=== PATIENT | male | born 1990 | race Caucasian/White ===

== ENCOUNTER 2019-01-23 01:23 | Emergency (ER) | payer OTHER ==
[2019-01-23] MEDS ORDERED: LIDOCAINE 1% W/EPI 1:100,000 MDV 20 ML VIAL ONE (01:54)
[2019-01-23] MEDS ORDERED: SMZ./TMP. 800/160 MG TABLET ONE (02:19)
[2019-01-23] MEDS ORDERED: DOXYCYCLINE 100 MG CAP PO ONE (02:19)
[2019-01-23] MEDS ORDERED: NA CHLORIDE 0.9% 1,000 ML ONE (02:19)
[2019-01-23 03:01] LABS: Absolute Lymphocytes (CBC) 1.9 K/uL (0.7-4.9); Basophils % 0.2 % (0-1.3); Hematocrit 38.8 % (39.6-49.0); Lymphocytes % 17.8 % (15.3-44.8); MPV 9.7 fL (7.6-11.3); RBC Red Blood Cell Count 4.08 M/uL (4.33-5.43)
--- NOTE | 2019-01-23 03:08 | ER ---
Nurse's Notes [facility] Name: Amauri Gaitan Age: 28 yrs Sex: Male : 1990 Arrival Date: 01/23/2019 Time: 01:28 Bed 2 Private MD: Jere Joel Diagnosis: Cutaneous abscess of back [any part, except buttock];Epileptic seizures related to external causes;Sebaceous cyst Presentation: 01/23 01:35 Presenting complaint: Patient states: last known time he recalls is 0040. pt stated he ak1 does not have a hx seizure. pt with hematoma to back of head. Transition of care: patient was not received from another setting of care. Onset of symptoms was January 23, 2019. Risk Assessment: Do you want to hurt yourself or someone else? Patient reports no desire to harm self or others. Initial Sepsis Screen: Does the patient meet any 2 criteria? No. Patient's initial sepsis screen is negative. Does the patient have a suspected source of infection? No. Patient's initial sepsis screen is negative. Care prior to arrival: None. 01:35 Method Of Arrival: Wheelchair ak1 01:35 Acuity: MYRANDA 3 ak1 Triage Assessment: 01:36 General: Appears in no apparent distress. Behavior is calm, cooperative. Neuro: Level ak1 of Consciousness is awake, alert, obeys commands, Oriented to person, place, time, situation, Appropriate for age Technology Integration Specialist are equal bilaterally Moves all extremities. Full function Gait is steady, Speech is normal. Historical: - Allergies: 01:36 No Known Allergies; ak1 - Home Meds: 01:36 None [Active]; ak1 - PMHx: 01:36 None; ak1 - PSHx: 01:36 None; ak1 - Immunization history:: Adult Immunizations unknown. - Social history:: Smoking status: Patient/guardian denies using tobacco. - Ebola Screening: : No symptoms or risks identified at this time. - Family history:: not pertinent. Screenin:46 Abuse screen: Denies threats or abuse. Nutritional screening: No deficits noted. ea Tuberculosis screening: No symptoms or risk factors identified. Fall Risk None identified. Assessment: 02:00 General: Appears comfortable, Behavior is calm, cooperative. Pain: Complains of pain in ea back. Neuro: Level of Consciousness is awake, alert, obeys commands, Oriented to person, place, time, situation. Cardiovascular: Patient's skin is warm and dry. Respiratory: Airway is patent Respiratory effort is even, unlabored, Respiratory pattern is regular, symmetrical. GI: Abdomen is non-distended. Derm: Skin is pink, warm \T\ dry. 03:44 Reassessment: Patient and/or family updated on plan of care and expected duration. Pain ea level reassessed. Patient is alert, oriented x 3, equal unlabored respirations, skin warm/dry/pink. 04:57 Reassessment: Patient and/or family updated on plan of care and expected duration. Pain ea level reassessed. Patient is alert, oriented x 3, equal unlabored respirations, skin warm/dry/pink. Discharge instruction given to patient, verbalized the understanding of instruction. Pt left ED ambulatory with family, tolerating well. Vital Signs: 01:34 BP 109 / 73; Pulse 59; Resp 16; Temp 98.6; Pulse Ox 96% on R/A; Weight 57.61 kg (R); ak1 Height 5 ft. 6 in. (167.64 cm) (R); Pain 5/10; 03:48 BP 104 / 66; Pulse 67; Resp 18; Pulse Ox 98% ; ea 05:00 BP 103 / 68; Pulse 96; Resp 18; Temp 97.8; Pulse Ox 100% ; ea 01:34 Body Mass Index 20.50 (57.61 kg, 167.64 cm) ak1 [place] Coma Score: 01:36 Eye Response: spontaneous(4). Verbal Response: oriented(5). Motor Response: obeys ak1 commands(6). Total: 15. ED Course: 01:28 Patient arrived in ED. es 01:29 Jere Joel MD is Private Physician. es 01:34 Arm band placed on Patient placed in an exam room, on a stretcher, Patient notified of ak1 wait time. 01:36 Triage completed. ak1 01:47 Colleen Johnson is Primary Nurse. 01:47 Wes Garcia MD is Attending Physician. jacqueline 02:00 Patient has correct armband on for positive identification. Bed in low position. Call ea light in reach. Side rails up X2. 02:00 Seizure precautions initiated. ea 02:14 Chest Single View XRAY In Process Unspecified. EDMS 02:37 CT Head C Spine In Process Unspecified. EDMS 02:46 Inserted saline lock: 20 gauge in left antecubital area, using aseptic technique. ea 03:08 Jere Joel MD is Referral Physician. jacqueline 03:08 Trent Jackson MD is Referral Physician. jacqueline 03:08 Easton Erickson MD is Referral Physician. jacqueline 04:41 Dressings: Adaptic X 1; back Tegaderm X 2; back 4X4s X 3; back. mt 04:44 Assist provider with I \T\ D: of an abscess on center of mid back Set up I\T\D tray. ea Performed by Wes Garcia MD Culture sent to lab. Dressing with 4X4s, tape Patient tolerated well. 04:50 IV discontinued, intact, bleeding controlled, No redness/swelling at site. Pressure ea dressing applied. Administered Medications: 02:45 Drug: NS 0.9% 1000 ml Route: IV; Rate: 1 bolus; Site: left antecubital; ea 04:44 Follow up: Response: No adverse reaction; IV Status: Completed infusion; IV Intake: ea 1000ml 02:45 Drug: Bactrim (160 mg-800 mg (DS) 1 tablet Route: PO; ea 03:43 Follow up: Response: No adverse reaction ea 02:45 Drug: Doxycycline 100 mg Route: PO; ea 03:42 Follow up: Response: No adverse reaction ea 04:43 Drug: Lidocaine-Epinephrine -1%: (1:100,000) 10 ml {Note: adminitered by provider.} ea Volume: 20 ml; Route: Infiltration; Intake: 04:44 IV: 1000ml; Total: 1000ml. ea Outcome: 03:08 Discharge ordered by . jacqueline 04:58 Discharged to home ambulatory, with family. ea 04:58 Condition: stable 04:58 Discharge instructions given to patient, Instructed on discharge instructions, follow up and referral plans. medication usage, Demonstrated understanding of instructions, follow-up care, medications, Prescriptions given X 2. 04:58 Patient left the ED. ea Signatures: Dispatcher [employer] Wes Perkins MD MD cha Salyer, Edna es Krenek, Amber RN RN [facility]f Dickson, Nusrat mt Hernandez, Elis, RN RN ea Habalo, Winsy wh
--- NOTE | 2019-01-23 03:09 | EDPHYS ---
Physician Documentation [facility] Name: Amauri Gaitan Age: 28 yrs Sex: Male : 1990 Arrival Date: 01/23/2019 Time: 01:28 Bed 2 Private MD: Jere Joel ED Physician Wes Garcia HPI: 01/23 01:57 This 28 yrs old Male presents to ER via Wheelchair with complaints of Bumb on jacqueline back, Seizure, fell and hit head. 01:57 This 28 yrs old Male presents to ER via Wheelchair with complaints of Bumb on jacqueline back, Seizure, fell and hit head. 01:57 The patient presents with a history of multiple seizures, a total of 2, that last 5 jacqueline second(s). Character of seizure(s): Loss of consciousness: the patient did not lose consciousness, Motor activity: generalized. Seizure onset: just prior to arrival. Context: the seizure(s) was witnessed, by a friend, occurred at home. Seizure Hx: the patient has no previous seizure history. Associated injury: The patient did not suffer any apparent associated injury. The patient has not experienced similar symptoms in the past. Historical: - Allergies: 01:36 No Known Allergies; ak1 - Home Meds: 01:36 None [Active]; ak1 - PMHx: 01:36 None; ak1 - PSHx: 01:36 None; ak1 - Immunization history:: Adult Immunizations unknown. - Social history:: Smoking status: Patient/guardian denies using tobacco. - Ebola Screening: : No symptoms or risks identified at this time. - Family history:: not pertinent. ROS: 01:57 Constitutional: Negative for fever, chills, and weight loss, Eyes: Negative for injury, jacqueline pain, redness, and discharge, ENT: Negative for injury, pain, and discharge, Neck: Negative for injury, pain, and swelling, Cardiovascular: Negative for chest pain, palpitations, and edema, Respiratory: Negative for shortness of breath, cough, wheezing, and pleuritic chest pain, Abdomen/GI: Negative for abdominal pain, nausea, vomiting, diarrhea, and constipation, Back: Negative for injury and pain, : Negative for injury, bleeding, discharge, and swelling, MS/Extremity: Negative for injury and deformity, Psych: Negative for depression, anxiety, suicide ideation, homicidal ideation, and hallucinations, Allergy/Immunology: Negative for hives, rash, and allergies, Endocrine: Negative for neck swelling, polydipsia, polyuria, polyphagia, and marked weight changes, Hematologic/Lymphatic: Negative for swollen nodes, abnormal bleeding, and unusual bruising. :57 Skin: Positive for abscess, swelling, of the back. Exam: :57 Constitutional: This is a well developed, well nourished patient who is awake, alert, jacqueline and in no acute distress. Head/Face: Normocephalic, atraumatic. Eyes: Pupils equal round and reactive to light, extra-ocular motions intact. Lids and lashes normal. Conjunctiva and sclera are non-icteric and not injected. Cornea within normal limits. Periorbital areas with no swelling, redness, or edema. ENT: Nares patent. No nasal discharge, no septal abnormalities noted. Tympanic membranes are normal and external auditory canals are clear. Oropharynx with no redness, swelling, or masses, exudates, or evidence of obstruction, uvula midline. Mucous membranes moist. Neck: Trachea midline, no thyromegaly or masses palpated, and no cervical lymphadenopathy. Supple, full range of motion without nuchal rigidity, or vertebral point tenderness. No Meningismus. Chest/axilla: Normal chest wall appearance and motion. Nontender with no deformity. No lesions are appreciated. Cardiovascular: Regular rate and rhythm with a normal S1 and S2. No gallops, murmurs, or rubs. Normal PMI, no JVD. No pulse deficits. Respiratory: Lungs have equal breath sounds bilaterally, clear to auscultation and percussion. No rales, rhonchi or wheezes noted. No increased work of breathing, no retractions or nasal flaring. Abdomen/GI: Soft, non-tender, with normal bowel sounds. No distension or tympany. No guarding or rebound. No evidence of tenderness throughout. Back: No spinal tenderness. No costovertebral tenderness. Full range of motion. Male : Normal genitalia with no discharge or lesions. MS/ Extremity: Pulses equal, no cyanosis. Neurovascular intact. Full, normal range of motion. Neuro: Awake and alert, GCS 15, oriented to person, place, time, and situation. Cranial nerves II-XII grossly intact. Motor strength 5/5 in all extremities. Sensory grossly intact. Cerebellar exam normal. Normal gait. Psych: Awake, alert, with orientation to person, place and time. Behavior, mood, and affect are within normal limits. 01:57 Skin: abscess, that is moderate sized, of the back, with fluctuance, with induration, with surrounding cellulitis, cellulitis, that is mild, induration, that is moderate is noted. Vital Signs: 01:34 BP 109 / 73; Pulse 59; Resp 16; Temp 98.6; Pulse Ox 96% on R/A; Weight 57.61 kg (R); ak1 Height 5 ft. 6 in. (167.64 cm) (R); Pain 5/10; 03:48 BP 104 / 66; Pulse 67; Resp 18; Pulse Ox 98% ; ea 05:00 BP 103 / 68; Pulse 96; Resp 18; Temp 97.8; Pulse Ox 100% ; ea 01:34 Body Mass Index 20.50 (57.61 kg, 167.64 cm) ak1 [place] Coma Score: 01:36 Eye Response: spontaneous(4). Verbal Response: oriented(5). Motor Response: obeys ak1 commands(6). Total: 15. Procedures: 03:10 I \T\ D: Incision and drainage was performed for an abscess of the Prepped with Betadine, jacqueline Anesthetized with 10 ml's 1% Lidocaine w/ Epi. Incised with #11 blade. Drained moderate amount purulent fluid. Packed with iodoform gauze, Dressing: non-Adherent dressing, the patient tolerated the procedure well. MDM: 01:47 Patient medically screened. [facility] 01:59 Data reviewed: vital signs, nurses notes, lab test result(s), EKG, radiologic studies. [facility] 01/23 01:56 Order name: Acetaminophen; Complete Time: 04:09 [facility] 01/23 01:56 Order name: Basic Metabolic Panel; Complete Time: 04:09 [facility] 01/23 01:56 Order name: CBC with Diff; Complete Time: 03:08 [facility] 01/23 01:56 Order name: ETOH Level; Complete Time: 03:23 [facility] 01/23 01:56 Order name: Hepatic Function; Complete Time: 04:09 [facility] 01/23 01:56 Order name: PT-INR; Complete Time: 03:23 [facility] 01/23 01:56 Order name: Ptt, Activated; Complete Time: 03:23 [facility] 01/23 01:56 Order name: Salicylate; Complete Time: 04:09 [facility] 01/23 01:56 Order name: Chest Single View XRAY [facility] 01/23 01:56 Order name: CT Head C Spine [facility] 01/23 01:56 Order name: Wound Culture [facility] 01/23 01:56 Order name: EKG; Complete Time: 01:57 [facility] 01/23 01:56 Order name: EKG - Nurse/Tech; Complete Time: 02:45 [facility] 01/23 01:56 Order name: IV Saline Lock; Complete Time: 02:45 [facility] 01/23 01:56 Order name: Labs collected and sent; Complete Time: 02:45 [facility] 01/23 01:56 Order name: Seizure Precautions; Complete Time: 02:51 [facility] 01/23 01:56 Order name: Dressing - Wound; Complete Time: 02:51 [facility] 01/23 01:56 Order name: Gloves, Sterile; Complete Time: 02:51 [facility] 01/23 01:56 Order name: Setup Suture Tray; Complete Time: 02:51 [facility] Administered Medications: 02:45 Drug: NS 0.9% 1000 ml Route: IV; Rate: 1 bolus; Site: left antecubital; ea 04:44 Follow up: Response: No adverse reaction; IV Status: Completed infusion; IV Intake: ea 1000ml 02:45 Drug: Bactrim (160 mg-800 mg (DS) 1 tablet Route: PO; ea 03:43 Follow up: Response: No adverse reaction ea 02:45 Drug: Doxycycline 100 mg Route: PO; ea 03:42 Follow up: Response: No adverse reaction ea 04:43 Drug: Lidocaine-Epinephrine -1%: (1:100,000) 10 ml {Note: adminitered by provider.} ea Volume: 20 ml; Route: Infiltration; Disposition: 01/23/19 03:08 Discharged to Home. Impression: Cutaneous abscess of back [any part, except buttock], Epileptic seizures related to external causes, Sebaceous cyst. - Condition is Stable. - Discharge Instructions: Skin Abscess, Incision and Drainage, Nonepileptic Seizures, Seizure, Adult, Skin Abscess, [id number], Seizure, Adult, Ijal-ma-Cibu, Incision and Drainage, Care After. - Prescriptions for Doxycycline Hyclate 100 mg Oral Tablet - take 1 tablet by ORAL route every 12 hours; 20 tablet. Bactrim DS 800- 160 mg Oral Tablet - take 1 tablet by ORAL route every 12 hours for 10 days; 20 tablet. - Medication Reconciliation Form, Thank You Letter, Antibiotic Education, Prescription Opioid Use form. - Follow up: Jere Joel; When: 2 - 3 days; Reason: Recheck today's complaints, Continuance of care, Re-evaluation by your physician. Follow up: Trent Jackson; When: 2 - 3 days; Reason: Recheck today's complaints, Re-evaluation by your physician. Follow up: Easton Erickson; When: 2 - 3 days; Reason: Recheck today's complaints, Re-evaluation by your physician. - Problem is new. - Symptoms have improved. Signatures: Dispatcher [employer] Wes Perkins MD MD cha Krenek, Amber RN RN akElis Barber RN RN ea Corrections: (The following items were deleted from the chart) 04:44 03:08 01/23/2019 03:08 Discharged to Home. Impression: Cutaneous abscess of back [any jacqueline part, except buttock]; Epileptic seizures related to external causes. Condition is Stable. Discharge Instructions: Skin Abscess, Incision and Drainage, Nonepileptic Seizures, Seizure, Adult, Skin Abscess, [id number], Seizure, Adult, [id number]-wn-[id number], Incision and Drainage, Care After. Prescriptions for Doxycycline Hyclate 100 mg Oral Tablet - take 1 tablet by ORAL route every 12 hours; 20 tablet, Bactrim DS 800-160 mg Oral Tablet - take 1 tablet by ORAL route every 12 hours for 10 days; 20 tablet. and Forms are Medication Reconciliation Form, Thank You Letter, Antibiotic Education, Prescription Opioid Use. Follow up: Jere Joel; When: 2 - 3 days; Reason: Recheck today's complaints, Continuance of care, Re-evaluation by your physician. Follow up: Trent Jackson; When: 2 - 3 days; Reason: Recheck today's complaints, Re-evaluation by your physician. Follow up: Easton Erickson; When: 2 - 3 days; Reason: Recheck today's complaints, Re-evaluation by your physician. Problem is new. Symptoms have improved. [facility] 04:58 04:44 01/23/2019 03:08 Discharged to Home. Impression: Cutaneous abscess of back [any ea part, except buttock]; Epileptic seizures related to external causes; Sebaceous cyst. Condition is Stable. Discharge Instructions: Skin Abscess, Incision and Drainage, Nonepileptic Seizures, Seizure, Adult, Skin Abscess, [id number], Seizure, Adult, [id number], Incision and Drainage, Care After. Prescriptions for Doxycycline Hyclate 100 mg Oral Tablet - take 1 tablet by ORAL route every 12 hours; 20 tablet, Bactrim DS 800-160 mg Oral Tablet - take 1 tablet by ORAL route every 12 hours for 10 days; 20 tablet. and Forms are Medication Reconciliation Form, Thank You Letter, Antibiotic Education, Prescription Opioid Use. Follow up: Jere Joel; When: 2 - 3 days; Reason: Recheck today's complaints, Continuance of care, Re-evaluation by your physician. Follow up: Trent Jackson; When: 2 - 3 days; Reason: Recheck today's complaints, Re-evaluation by your physician. Follow up: Easton Erickson; When: 2 - 3 days; Reason: Recheck today's complaints, Re-evaluation by your physician. Problem is new. Symptoms have improved. jacqueline
[2019-01-23 03:52] LABS: ALT/SGPT 17 U/L (12-78); AST/SGOT 19 U/L (15-37); Albumin 3.8 g/dL (3.4-5.0); Alkaline Phosphatase 76 U/L (45-117); BUN Blood Urea Nitrogen 13 mg/dL (7-18); Bicarbonate 28 mmol/L (21-32); Bilirubin Direct 0.2 mg/dL (0-0.2); Bilirubin Total 0.4 mg/dL (0.2-1.0); Glucose Level 94 mg/dL (74-106); Potassium 3.7 mmol/L (3.5-5.1); Protein, Total 6.5 g/dL (6.4-8.2); Sodium Level 142 mmol/L (136-145)
[2019-01-23 05:09] VITALS: TEMP 98.6
[2019-01-23 05:10] VITALS: BP 104/66; O2SAT 98
--- NOTE | 2019-01-23 08:39 | RAD REPORT ---
EXAM DESCRIPTION: RAD - Chest Single View - 01/23/2019 2:15 am CLINICAL HISTORY: Cough COMPARISON: None. TECHNIQUE: AP portable chest image was obtained 0211 hours . FINDINGS: Lungs are clear. Heart and vasculature are normal. No measurable pleural effusion and no p neumothorax. No acute bony abnormality seen. No acute aortic findings suspected. IMPRESSION: No acute cardiopulmonary process.
--- NOTE | 2019-01-23 09:55 | RAD REPORT ---
EXAM DESCRIPTION: CT - [id number] - 01/23/2019 2:50 am CLINICAL HISTORY: The patient is 28 years old and is Male; PAIN TECHNIQUE: Axial computed tomography images of the head/brain and cervical spine without intravenous contrast. Sagittal and coronal reformatted images were created and reviewed. This CT exam was pe rformed using one or more of the following dose reduction techniques: automated exposure control, a djustment of the mA and/or kV according to patient size, and/or use of iterative reconstruction techn ique. COMPARISON: No relevant prior studies available. FINDINGS: BRAIN: Unremarkable. No hemorrhage. No significant white matter disease. No edema. VENTRICLES: Unremarkable. No ventriculomegaly. SKULL: No acute fracture. SINUSES: Unremarkable as visualized. No acute sinusitis. MASTOID AIR CELLS: Unremarkable as visualized. No mastoid effusion. VERTEBRAE: The vertebral body heights and alignment are maintained. No acute fracture. DISCS/SPINAL CANAL/NEURAL FORAMINA: The intervertebral disc spaces are maintained. No spinal can al stenosis. SOFT TISSUES: The soft tissues are normal. LUNG APICES: Unremarkable as visualized. IMPRESSION: No acute intracranial findings. No fracture or malalignment of the cervical spine. Electronically signed by: Veronica Mendiola MD 01/23/2019 2:43 AM CDT Due to temporary technical issues with the PACS/Fluency reporting system, reports are being signed by the in house radiologist as a courtesy to ensure prompt reporting. The interpreting radiologist is f ully responsible for the content of the report.
--- NOTE | 2019-01-23 12:10 | EKG ---
Test Date: 2019-01-23 Test Time: 02:29:10 Culinary Art Teacher: HAI MEASUREMENT RESULTS: Intervals: Rate: 64 [place]: 162 QRSD: 94 QT: 386 QTc: 398 [place]: P: 79 [place]: 162 QRS: 78 T: 62 INTERPRETIVE STATEMENTS: Normal sinus rhythm with sinus arrhythmia Normal ECG No previous ECG available for comparison Electronically Signed On 01-23-19 12:08:57 CDT by Amaury Salas
== END 2019-01-23 04:58 | disposition home or self-care (01) ==
LOC: ER 01:23
PROC: 0J970ZZ Drainage of Back Subcutaneous Tissue and Fascia, Open Approach (ICD-10-PCS; principal; 2019-01-23)
DX: L02.212 Cutaneous abscess of back [any part, except buttock and flank] (principal); L72.3 Sebaceous cyst; W19.XXXA Unspecified fall, initial encounter; Y93.9 Activity, unspecified; Y92.009 Unspecified place in unspecified non-institutional (private) residence as the place of occurrence of the external cause
CPT/HCPCS: 93005; 87070; 85025; 80048; 36415; 80320; 87205; 80329 ×2; 85610; 80076; 85730; 70450; 72125; 71045; 10060; J7030; 96360; 96361; 99284